=== PATIENT | female | born 1990 | race Caucasian/White ===

== ENCOUNTER 2019-06-13 23:08 | Emergency (ER) | payer OTHER ==
--- NOTE | 2019-06-13 23:16 | ERPHSYRPT ---
- History of Present Illness Time Seen by Provider: 06/13/19 23:11 Source: patient, EMS Exam Limitations: clinical condition Physician History: A 29-year-old female who was brought in by ambulance service because of both verbalization of suicide ideation and attempt with a electric cord around her neck. Patient states that she does not want to live anymore. She stated this to several individuals on several occasions today. She again told me and the nurse the same thing. Patient states she drank 2 alcoholic drinks prior to arrival. She denies any other illicit drug use. Patient is not taking her usual psychiatric medications. Patient states that she is not hallucinating. Patient has bruise huber on her arms and when asked how they got there, she said she was not sure but stated "I probably deserved it". Timing/Duration: today Severity of Symptoms-Max: moderate Severity of Symptoms-Current: moderate Context related to: living circumstances, other (Mental illness) Suicidal thoughts: attempt, specific plan Associated Symptoms: depressed, suicidal ideation, other (Aggressive) Previous symptoms: same symptoms as today Allergies/Adverse Reactions: amoxicillin [Amoxicillin] Allergy (Mild, Verified 06/13/19 23:46) azithromycin Allergy (Mild, Verified 06/13/19 23:46) Hx Tetanus, Diphtheria Vaccination/Date Given: (unknown) Hx Influenza Vaccination/Date Given: Yes Hx Pneumococcal Vaccination/Date Given: No - Past Medical History Pertinent Past Medical History: Yes Neurological History: No Pertinent History ENT History: No Pertinent History Cardiac History: No Pertinent History Respiratory History: No Pertinent History Endocrine Medical History: No Pertinent History Musculoskeletal History: No Pertinent History GI Medical History: No Pertinent History History: No Pertinent History Psycho-Social History: No Pertinent History Female Reproductive Disorders: Other Other Medical History: ANXIETY/DEPRESSION - Past Surgical History Past Surgical History: Yes Neuro Surgical History: No Pertinent History Cardiac: No Pertinent History Respiratory: No Pertinent History Gastrointestinal: Appendectomy Genitourinary: No Pertinent History Musculoskeletal: No Pertinent History Female Surgical History: Other Other Surgical History: uterine scope. bartholin gland removed. D&C - Social History Smoking Status: Current some day smoker Exposure to second hand smoke: Yes Drug Use: marijuana Patient Lives Alone: No - Review of Systems Constitutional: No Symptoms Eyes: No Symptoms Ears, Nose, & Throat: No Symptoms Respiratory: No Symptoms Cardiac: No Symptoms Abdominal/Gastrointestinal: No Symptoms Genitourinary Symptoms: No Symptoms Musculoskeletal: No Symptoms Skin: Other (Doing of upper and outer arms.) Psychological: Anxiety, Depression, Suicidal Ideations Endocrine: No Symptoms Hematologic/Lymphatic: No Symptoms Immunological/Allergic: No Symptoms All Other Systems: Reviewed and Negative - Nursing Vital Signs Nursing Vital Signs: Initial Vital Signs Temperature 98.4 F 06/13/19 23:17 Pulse Rate 70 06/13/19 23:17 Respiratory Rate 13 06/13/19 23:17 Blood Pressure 90/55 06/13/19 23:17 O2 Sat by Pulse Oximetry 98 06/13/19 23:17 - Physical Exam General Appearance: alert, anxiety, thin Eyes, Ears, Nose, Throat Exam: normal ENT inspection, moist mucous membranes Neck Exam: normal inspection, non-tender, supple, full range of motion Respiratory Exam: normal breath sounds, lungs clear, airway intact, No chest tenderness, No respiratory distress Cardiovascular Exam: regular rate/rhythm, normal heart sounds, normal peripheral pulses Gastrointestinal/Abdominal Exam: soft, normal bowel sounds, No tenderness Extremities Exam: normal range of motion, other (Oozing in her upper outer arms) , No evidence of injury Current Suicidality: has suicide plan Neurological Exam: alert, calm, 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, oriented x 3, depressed affect Appearance: appropriate appearance, impaired insight (Passive-aggressive in both her demeanor stance and verbal responses) Behavior/Eye Contact/Speech: avoids eye contact, alert & uncooperative, intoxicated appearance Thoughts/Hallucinations: no apparent hallucination Skin Exam: ecchymosis (Outer arms upper portions bilaterally) SpO2 Interpretation: normal O2 Delivery: Room Air - Course Nursing assessment & vital signs reviewed: Yes EKG Interpreted by Me: RATE (74), Sinus Rhythm, NORMAL AXIS, NORMAL INTERVALS, NORMAL QRS Ordered Tests: Active Orders 24 hr Category Date Time Status Chemical Research Technician STAT Care 06/13/19 23:20 Active EKG-ER Only STAT Care 06/13/19 23:18 Active Psychiatric Consult STAT Cons 06/13/19 23:19 Active ACETAMINOPHEN Stat Lab 06/13/19 23:37 Completed Alcohol [ETHYL ALCOHOL] Stat Lab 06/14/19 03:09 Completed CBC W DIFF Stat Lab 06/13/19 23:37 Completed CMP Stat Lab 06/13/19 23:37 Completed ETHYL ALCOHOL Stat Lab 06/13/19 23:37 Completed SALICYLATE Stat Lab 06/13/19 23:37 Completed UA W/RFX UR CULTURE Stat Lab 06/13/19 23:51 Completed Urine Triage Profile Stat Lab 06/13/19 23:51 Completed Lab/Rad Data: Laboratory Result Diagrams 06/13/19 23:37 06/13/19 23:37 Laboratory Results 06/14/19 06/13/19 06/13/19 Range/Units 03: 23:51 23:51 WBC (4.0-10.5) K/mm3 RBC (4.1-5.4) M/mm3 Hgb (12.0-16.0) gm/dl Hct (35-47) % MCV (78-100) fl MCH (26-32) pg MCHC (32-36) g/dl RDW (11.5-14.0) % Plt Count (150-450) K/mm3 MPV (7.5-11.0) fl Gran % (36.0-66.0) % Eos # (Auto) (0-0.5) Absolute Lymphs (auto) (1.0-4.6) Absolute Monos (auto) (0.0-1.3) Lymphocytes % (24.0-44.0) % Monocytes % (0.0-12.0) % Eosinophils % (0.00-5.0) % Basophils % (0.0-0.4) % Absolute Granulocytes (1.4-6.9) Basophils # (0-0.4) Sodium (137-145) mmol/L Potassium (3.5-5.1) mmol/L Chloride (98-107) mmol/L Carbon Dioxide (22-30) mmol/L Anion Gap (5-15) MEQ/L BUN (7-17) mg/dL Creatinine (0.52-1.04) mg/dL Estimated GFR ML/MIN Glucose (74-106) mg/dL Calcium (8.4-10.2) mg/dL Total Bilirubin (0.2-1.3) mg/dL AST (14-36) U/L ALT (0-35) U/L Alkaline Phosphatase (38-126) U/L Serum Total Protein (6.3-8.2) g/dL Albumin (3.5-5.0) g/dL Urine Color STRAW (YELLOW) Urine Appearance CLEAR (CLEAR) Urine pH 6.0 (5-6) Ur Specific [place] 1.003 (1.005-1.025) Urine Protein NEGATIVE (Negative) Urine Ketones NEGATIVE (NEGATIVE) Urine Blood NEGATIVE (0-5) Scott/ul Urine Nitrite NEGATIVE (NEGATIVE) Urine Bilirubin NEGATIVE (NEGATIVE) Urine Urobilinogen NEGATIVE (0-1) mg/dL Ur Leukocyte Esterase NEGATIVE (NEGATIVE) Urine WBC (Auto) 0-2 (0-5) /HPF Urine RBC (Auto) NONE SEEN (0-2) /HPF U Epithel Cells (Auto) RARE (FEW) /HPF Urine Bacteria (Auto) RARE (NEGATIVE) /HPF Urine Mucus (Auto) SLIGHT (NEGATIVE) /HPF Urine Culture Reflexed NO (NO) Urine Glucose NEGATIVE (NEGATIVE) mg/dL Salicylates (2-20) mg/dL Urine Opiates Level NEGATIVE (NEGATIVE) Ur Methadone NEGATIVE (NEGATIVE) Acetaminophen (10-30) ug/ml Urine Barbiturates NEGATIVE (NEGATIVE) Ur Phencyclidine (PCP) NEGATIVE (NEGATIVE) Urine Amphetamine NEGATIVE (NEGATIVE) U Benzodiazepine Level NEGATIVE (NEGATIVE) Urine Cocaine NEGATIVE (NEGATIVE) Urine Marijuana (THC) POSITIVE (NEGATIVE) Ethyl Alcohol < 10 (0-10) mg/dL 06/13/19 06/13/19 Range/Units 23:37 23:37 WBC 7.5 (4.0-10.5) K/mm3 RBC 4.79 (4.1-5.4) M/mm3 Hgb 15.5 (12.0-16.0) gm/dl Hct 43.7 (35-47) % MCV 91.2 (78-100) fl MCH 32.4 H (26-32) pg MCHC 35.5 (32-36) g/dl RDW 12.6 (11.5-14.0) % Plt Count 281 (150-450) K/mm3 MPV 10.2 (7.5-11.0) fl Gran % 71.8 H (36.0-66.0) % Eos # (Auto) 0.08 (0-0.5) Absolute Lymphs (auto) 1.37 (1.0-4.6) Absolute Monos (auto) 0.63 (0.0-1.3) Lymphocytes % 18.2 L (24.0-44.0) % Monocytes % 8.4 (0.0-12.0) % Eosinophils % 1.1 (0.00-5.0) % Basophils % 0.5 (0.0-0.4) % Absolute Granulocytes 5.42 (1.4-6.9) Basophils # 0.04 (0-0.4) Sodium 140 (137-145) mmol/L Potassium 3.9 (3.5-5.1) mmol/L Chloride 108 H (98-107) mmol/L Carbon Dioxide 23 (22-30) mmol/L Anion Gap 13.6 (5-15) MEQ/L BUN 8 (7-17) mg/dL Creatinine 0.69 (0.52-1.04) mg/dL Estimated GFR > 60.0 ML/MIN Glucose 84 (74-106) mg/dL Calcium 9.1 (8.4-10.2) mg/dL Total Bilirubin 0.80 (0.2-1.3) mg/dL AST 22 (14-36) U/L ALT 12 (0-35) U/L Alkaline Phosphatase 56 (38-126) U/L Serum Total Protein 8.4 H (6.3-8.2) g/dL Albumin 4.8 (3.5-5.0) g/dL Urine Color (YELLOW) Urine Appearance (CLEAR) Urine pH (5-6) Ur Specific [place] (1.005-1.025) Urine Protein (Negative) Urine Ketones (NEGATIVE) Urine Blood (0-5) Scott/ul Urine Nitrite (NEGATIVE) Urine Bilirubin (NEGATIVE) Urine Urobilinogen (0-1) mg/dL Ur Leukocyte Esterase (NEGATIVE) Urine WBC (Auto) (0-5) /HPF Urine RBC (Auto) (0-2) /HPF U Epithel Cells (Auto) (FEW) /HPF Urine Bacteria (Auto) (NEGATIVE) /HPF Urine Mucus (Auto) (NEGATIVE) /HPF Urine Culture Reflexed (NO) Urine Glucose (NEGATIVE) mg/dL Salicylates < 1.0 L (2-20) mg/dL Urine Opiates Level (NEGATIVE) Ur Methadone (NEGATIVE) Acetaminophen < 10 L (10-30) ug/ml Urine Barbiturates (NEGATIVE) Ur Phencyclidine (PCP) (NEGATIVE) Urine Amphetamine (NEGATIVE) U Benzodiazepine Level (NEGATIVE) Urine Cocaine (NEGATIVE) Urine Marijuana (THC) (NEGATIVE) Ethyl Alcohol 45 H (0-10) mg/dL - Progress Progress: unchanged Progress Note: 06/14/19 03:50 Patient is being transferred to [facility] via BLS. Dr. Elliott accepted the patient for transfer and admission. Counseled pt/family regarding: lab results, diagnosis, need for follow-up - Departure Departure Disposition: Transfer Clinical Impression: Suicidal ideation, Suicide gesture Condition: Stable Critical Care Time: No Referrals: SYBIL PEÑA MD [Primary Care Provider] -
[2019-06-13 23:53] LABS: Absolute Neutrophil Ct (ANC) 5.42 (1.4-6.9); BASOPHIL % 0.5 % (0.0-0.4); Basophil (Absolute #) 0.04 (0-0.4); Eosinophil % 1.1 % (0.00-5.0); Eosinophil (Absolute #) 0.08 (0-0.5); Hematocrit 43.7 % (35-47); Hemoglobin 15.5 gm/dl (12.0-16.0); Lymphocyte (Absolute #) 1.37 (1.0-4.6); Lymphocytes % 18.2 % (24.0-44.0); Mean Cell Volume 91.2 fl (78-100); Mean Corpuscular Hemoglobin 32.4 pg (26-32); Mean Corpuscular Hgb Concent. 35.5 g/dl (32-36); Mean Platelet Volume 10.2 fl (7.5-11.0); Monocyte (Absolute #) 0.63 (0.0-1.3); Monocytes % 8.4 % (0.0-12.0); Neutrophil % 71.8 % (36.0-66.0); Platelet Count 281 K/mm3 (150-450); Red Blood Count 4.79 M/mm3 (4.1-5.4); Red Cell Distribution Width 12.6 % (11.5-14.0); White Blood Count 7.5 K/mm3 (4.0-10.5)
[2019-06-13 23:58] LABS: ACETAMINOPHEN < 10 ug/ml (10-30); ALBUMIN 4.8 g/dL (3.5-5.0); ALKALINE PHOSPHATASE 56 U/L (38-126); ANION GAP 13.6 MEQ/L (5-15); BLOOD UREA NITROGEN 8 mg/dL (7-17); CHLORIDE 108 mmol/L (98-107); Calcium 9.1 mg/dL (8.4-10.2); Carbon Dioxide 23 mmol/L (22-30); Creatinine 1 0.69 mg/dL (0.52-1.04); ETHYL ALCOHOL 45 mg/dL (0-10); Glucose 84 mg/dL (74-106); Potassium 3.9 mmol/L (3.5-5.1); SALICYLATE < 1.0 mg/dL (2-20); SGOT/AST 22 U/L (14-36); SGPT/ALT 12 U/L (0-35); SODIUM 140 mmol/L (137-145); Total Protein 8.4 g/dL (6.3-8.2)
[2019-06-13 23:58] LABS: Appearance CLEAR (CLEAR); Bacteria RARE /HPF (NEGATIVE); Bilirubin NEGATIVE (NEGATIVE); Blood NEGATIVE Ery/ul (0-5); Epithelial Cells RARE /HPF (FEW); Glucose NEGATIVE (NEGATIVE); Ketones NEGATIVE (NEGATIVE); Leukocyte Esterase NEGATIVE (NEGATIVE); Mucus SLIGHT /HPF (NEGATIVE); Nitrite NEGATIVE (NEGATIVE); Protein,Urine Dip NEGATIVE (Negative); Specific Gravity 1.003 (1.005-1.025); Urobilinogen NEGATIVE mg/dL (0-1); WBC 0-2 /HPF (0-5)
[2019-06-13 23:59] LABS: RBC NONE SEEN /HPF (0-2)
[2019-06-14 00:09] LABS: Amphetamine,Urine NEGATIVE (NEGATIVE); Barbiturate,Urine NEGATIVE (NEGATIVE); Benzodiazepine,Urine NEGATIVE (NEGATIVE); Cocaine,Urine NEGATIVE (NEGATIVE); Methadone,Urine NEGATIVE (NEGATIVE); Opiate,Urine NEGATIVE (NEGATIVE); PCP,Urine NEGATIVE (NEGATIVE); THC,Urine POSITIVE (NEGATIVE)
[2019-06-14 04:00] VITALS: BP 102/65; PULSE 81; O2SAT 97
[2019-06-14] MEDS ORDERED: MOTRIN 400 MG PO ONE (04:00)
[2019-06-14] MEDS ORDERED: MOTRIN 400 MG ONE (04:01)
== END 2019-06-14 04:29 ==
LOC: ED 23:08
DX: R45.851 Suicidal ideations (principal); F41.9 Anxiety disorder, unspecified; F32.9 Major depressive disorder, single episode, unspecified
CPT/HCPCS: 36415; 80053; 80307; 81001; 85025; 93005; 93041; 99285; G0480; G0481; A9270-GY

== ENCOUNTER 2023-06-14 17:38 | Emergency (ER) | payer BC, OTHER ==
[2023-06-14 17:51] VITALS: TEMP 98.3
[2023-06-14 18:22] LABS: Absolute Neutrophil Ct (ANC) 3.32 x10^3/uL (1.4-6.9); BASOPHIL % 0.6 % (0.0-0.4); Basophil (Absolute #) 0.04 x10^3/uL (0-0.4); Eosinophil % 1.9 % (0.00-5.0); Eosinophil (Absolute #) 0.12 x10^3/uL (0-0.5); Hematocrit 45.1 % (35-47); Hemoglobin 15.3 g/dL (12.0-16.0); IMMATURE GRAN # 0.01 x10^3u/L (0.00-0.03); IMMATURE GRAN % 0.2 % (0.00-0.4); Lymphocyte (Absolute #) 2.21 x10^3/uL (1.0-4.6); Lymphocytes % 35.6 % (24.0-44.0); Mean Cell Volume 94.5 fL (78-100); Mean Corpuscular Hemoglobin 32.1 pg (26-32); Mean Corpuscular Hgb Concent. 33.9 g/dL (32-36); Mean Platelet Volume 9.7 fL (7.5-11.0); Monocyte (Absolute #) 0.51 x10^3/uL (0.0-1.3); Monocytes % 8.2 % (0.0-12.0); Neutrophil % 53.5 % (36.0-66.0); Platelet Count 309 x10^3/uL (150-450); Red Blood Count 4.77 x10^6/uL (4.1-5.4); Red Cell Distribution Width 12.7 % (11.5-14.0); White Blood Count 6.2 x10^3/uL (4.0-10.5)
--- NOTE | 2023-06-14 18:30 | ERPHSYRPT ---
- History of Present Illness Source: patient, family Exam Limitations: no limitations Patient Subjective Stated Complaint: Pt states "I woke up around 4 pm and my chest started to hurt really bad. The pain goes up into my left arm and neck." Triage Nursing Assessment: Pt presented alert and oriented X 3, skin pwd. Pt ambulates with an upright steady gait, able to speak in clear full sentences. PT holding her chest, crying. Timing/Duration: week(s) Severity: moderate Associated Symptoms: denies symptoms Hx Tetanus, Diphtheria Vaccination/Date Given: No Hx Influenza Vaccination/Date Given: No Hx Pneumococcal Vaccination/Date Given: No Immunizations Up to Date: No <MACARIO ZIMMERMAN - Last Filed: 06/14/23 18:55> <DANNY HANSON - Last Filed: 06/14/23 21:50> - History of Present Illness Time Seen by Provider: 06/14/23 18:28 Physician History: Pt states "I woke up around 4 pm and my chest started to hurt really bad. The pain goes up into my left arm and neck." Patient is 33-year-old female without any significant past medical history started having off-and-on left-sided chest pain radiating to the left arm for last 2 to 3 weeks but it got worse today so she got concerned and came to the emergency room. She still having some precordial left-sided chest pain radiating to the left. She is denying any nausea vomiting abdominal pain headache dizziness blood in the stool or urine. She has a 1 episode of blood in the stool 2 weeks ago but afterwards she did not have any other episode. She denies any epigastric pain. (ELSIE,MACARIO) Allergies/Adverse Reactions: amoxicillin [Amoxicillin] Allergy (Mild, Verified 06/13/19 23:46) azithromycin Allergy (Mild, Verified 06/13/19 23:46) Home Medications: No Reportable Medications [No Reported Medications] 06/14/23 [History] Travel Risk - International Travel Have you traveled outside of the country in past 3 weeks: No - Coronavirus Screening Are you exhibiting any of the following symptoms?: No Close contact with a COVID-19 positive Pt in past 14-21 Days: No - Vaccine Status Have you recieved a Covid-19 vaccination: No <ELSIE,MACARIO - Last Filed: 06/14/23 18:55> - Review of Systems Constitutional: No Fever, No Chills Eyes: No Symptoms Ears, Nose, & Throat: No Symptoms Respiratory: No Cough, No Dyspnea Cardiac: Chest Pain, No Edema, No Syncope Abdominal/Gastrointestinal: No Abdominal Pain, No Nausea, No Vomiting, No Diarrhea Genitourinary Symptoms: No Dysuria Musculoskeletal: No Back Pain, No Neck Pain Skin: No Rash Neurological: No Dizziness, No Focal Weakness, No Sensory Changes Psychological: No Symptoms Endocrine: No Symptoms All Other Systems: Reviewed and Negative <ELSIE - Last Filed: 06/14/23 18:55> - Past Medical History Pertinent Past Medical History: Yes Neurological History: No Pertinent History ENT History: No Pertinent History Cardiac History: No Pertinent History Respiratory History: No Pertinent History Endocrine Medical History: No Pertinent History Musculoskeletal History: No Pertinent History GI Medical History: No Pertinent History History: No Pertinent History Psycho-Social History: No Pertinent History Female Reproductive Disorders: Other Other Medical History: ANXIETY/DEPRESSION - Past Surgical History Past Surgical History: Yes Neuro Surgical History: No Pertinent History Cardiac: No Pertinent History Respiratory: No Pertinent History Gastrointestinal: Appendectomy Genitourinary: No Pertinent History Musculoskeletal: No Pertinent History Female Surgical History: Other Other Surgical History: uterine scope. bartholin gland removed. D&C - Social History Smoking Status: Former smoker Exposure to second hand smoke: Yes Drug Use: marijuana Patient Lives Alone: No - Female History Hx Last Menstrual Period: 05/27/2023 Hx Now: No <ELSIE - Last Filed: 06/14/23 18:55> - Physical Exam General Appearance: no apparent distress, alert Eye Exam: PERRL/EOMI, eyes nml inspection Ears, Nose, Throat Exam: normal ENT inspection, TMs normal, pharynx normal, moist mucous membranes Neck Exam: normal inspection, non-tender, supple, full range of motion Respiratory Exam: normal breath sounds, lungs clear, No respiratory distress Cardiovascular Exam: regular rate/rhythm, normal heart sounds, normal peripheral pulses Gastrointestinal/Abdomen Exam: soft, normal bowel sounds, No tenderness, No mass Back Exam: normal inspection, normal range of motion, No CVA tenderness, No vertebral tenderness Extremity Exam: normal inspection, normal range of motion, pelvis stable Neurologic Exam: alert, oriented x 3, cooperative, normal mood/affect, nml cerebellar function, nml station & gait, sensation nml, No motor deficits Skin Exam: normal color, warm, dry, No rash Lymphatic Exam: No adenopathy SpO2: 100 <MACARIO ZIMMERMAN - Last Filed: 06/14/23 18:55> - Nursing Vital Signs Nursing Vital Signs: Initial Vital Signs Pulse Rate 75 06/14/23 17:45 Respiratory Rate 16 06/14/23 17:45 Blood Pressure 145/97 06/14/23 17:45 O2 Sat by Pulse Oximetry 99 06/14/23 17:45 Pain Scale Pain Intensity 0 - Course Nursing assessment & vital signs reviewed: Yes EKG Interpreted by Me: Sinus Rhythm - Radiology Exams Chest X-ray Interpretation: Reviewed by me <MACARIO ZIMMERMAN - Last Filed: 06/14/23 18:55> - Course EKG Interpreted by Me: RATE (84), Sinus Rhythm, NORMAL AXIS, Other (QTc = 442) - Radiology Exams Chest X-ray Interpretation: No Pneumonia <DANNY HANSON - Last Filed: 06/14/23 21:50> Ordered Tests: Active Orders 24 hr Category Date Time Status EKG-ER Only STAT Care 06/14/23 18:13 Active EKG-ER Only STAT Care 06/14/23 18:30 Active CHEST 2 VIEWS (PA AND LAT) Stat Exams 06/14/23 18:14 Completed AMYLASE Stat Lab 06/14/23 18:00 Completed CBC W DIFF Stat Lab 06/14/23 18:00 Completed CMP Stat Lab 06/14/23 18:00 Completed LIPASE Stat Lab 06/14/23 18:00 Completed TROPONIN Stat Lab 06/14/23 18:00 Completed UA W/RFX UR CULTURE Stat Lab 06/14/23 20:07 Completed Medication Summary Discontinued Medications Generic Name Dose Route Start Last Admin Trade Name Kaylin PRN Reason Stop Dose Admin Acetaminophen 975 mg 06/14/23 18:13 06/14/23 18:40 Acetaminophen 325 Mg Tablet PO 06/14/23 18:14 975 mg STAT ONE Administration Acetaminophen Confirm 06/14/23 18:39 Acetaminophen 325 Mg Tablet Administered 06/14/23 18:40 Dose 975 mg .ROUTE .STK-MED ONE Famotidine 20 mg 06/14/23 18:13 06/14/23 18:41 Famotidine 20 Mg/1 Vial IV 06/14/23 18:14 20 mg STAT ONE Administration Famotidine Confirm 06/14/23 18:39 Famotidine 20 Mg/1 Vial Administered 06/14/23 18:40 Dose 20 mg IV .STK-MED ONE Sodium Chloride 1,000 mls @ 999 mls/hr 06/14/23 18:13 06/14/23 19:49 Sodium Chloride 0.9% 1000 Ml IV 06/14/23 19:13 Infused .Q1H1M STA Infusion Sodium Chloride Confirm 06/14/23 18:39 Sodium Chloride 0.9% 1000 Ml Administered 06/14/23 18:40 Dose 1,000 mls @ ud .ROUTE .STK-MED ONE Sodium Chloride Confirm 06/14/23 18:43 Sodium Chloride 0.9% 1000 Ml Administered 06/14/23 18:44 Dose 1,000 mls @ ud .ROUTE .STK-MED ONE Ketorolac Tromethamine 30 mg 06/14/23 18:13 06/14/23 18:40 Ketorolac Tromethamine 30 Mg/Ml Inj IV 06/14/23 18:14 30 mg STAT ONE Administration Ketorolac Tromethamine Confirm 06/14/23 18:39 Ketorolac Tromethamine 30 Mg/Ml Inj Administered 06/14/23 18:40 Dose 30 mg .ROUTE .STK-MED ONE Lab/Rad Data: Laboratory Result Diagrams 06/14/23 18:00 06/14/23 18:00 Laboratory Results 06/14/23 06/14/23 06/14/23 Range/Units 20:07 18:00 18:00 WBC 6.2 (4.0-10.5) x10^3/uL RBC 4.77 (4.1-5.4) x10^6/uL Hgb 15.3 (12.0-16.0) g/dL Hct 45.1 (35-47) % MCV 94.5 (78-100) fL MCH 32.1 H (26-32) pg MCHC 33.9 (32-36) g/dL RDW 12.7 (11.5-14.0) % Plt Count 309 (150-450) x10^3/uL MPV 9.7 (7.5-11.0) fL Gran % 53.5 (36.0-66.0) % Immature Gran % (Auto) 0.2 (0.00-0.4) % Nucleat RBC Rel Count 0.0 (0.00-0.1) % Eos # (Auto) 0.12 (0-0.5) x10^3/uL Immature Gran # (Auto) 0.01 (0.00-0.03) x10^3u/L Absolute Lymphs (auto) 2.21 (1.0-4.6) x10^3/uL Absolute Monos (auto) 0.51 (0.0-1.3) x10^3/uL Absolute Nucleated RBC 0.00 (0.00-0.01) x10^3u/L Lymphocytes % 35.6 (24.0-44.0) % Monocytes % 8.2 (0.0-12.0) % Eosinophils % 1.9 (0.00-5.0) % Basophils % 0.6 (0.0-0.4) % Absolute Granulocytes 3.32 (1.4-6.9) x10^3/uL Basophils # 0.04 (0-0.4) x10^3/uL Sodium 138 (135-145) mmol/L Potassium 4.0 (3.5-5.1) mmol/L Chloride 106 (98-107) mmol/L Carbon Dioxide 23 (22-30) mmol/L Anion Gap 13.3 (5-15) MEQ/L BUN 14 (7-17) mg/dL Creatinine 0.76 (0.52-1.04) mg/dL Estimated GFR 104.7 ML/MIN Glucose 92 (74-106) mg/dL Calcium 9.3 (8.4-10.2) mg/dL Total Bilirubin 0.60 (0.2-1.3) mg/dL AST 18 (14-36) U/L ALT 14 (0-35) U/L Alkaline Phosphatase 61 (38-126) U/L Troponin I < 0.012 (0.000-0.034) ng/mL Serum Total Protein 7.4 (6.3-8.2) g/dL Albumin 4.3 (3.5-5.0) g/dL Amylase 68 (30-110) U/L Lipase 53 (23-300) U/L Urine Color Yellow (Yellow) Urine Appearance Clear (Clear) Urine pH 7.5 (4.6-8.0) Ur Specific [place] <=1.005 (1.005-1.030) Urine Protein Negative (Negative) Urine Glucose (UA) Negative (Negative) mg/dL Urine Ketones Negative (Negative) Urine Blood Negative (Negative) Urine Nitrite Negative (Negative) Urine Bilirubin Negative (Negative) Urine Urobilinogen 0.2 (0.2) mg/dL Ur Leukocyte Esterase Negative (Negative) U Hyaline Cast (Auto) NONE SEEN (0-2) /LPF Urine Microscopic RBC 0-2 (0-5) /HPF Urine Microscopic WBC 0-2 (0-5) /HPF Ur Epithelial Cells None Seen (None Seen) /HPF Urine Bacteria None Seen (None Seen) /HPF Urine Culture Reflexed NO (NO) - Progress Progress: unchanged Counseled pt/family regarding: lab results, diagnosis, need for follow-up, rad results <DANNY HANSON - Last Filed: 06/14/23 21:50> - Progress Progress Note: 06/14/23 21:[address] Hanson @2140: perrl, pharynx pink, lungs clear, no cardiac rub, abdominal B.S. normal, alert & cooperative. (DANNY HANSON) Medical Desision Making - Diagnostic Testing Diagnostic test were ordered, analyzed, and reviewed by me: Yes Radiological Interpretation: Interpreted by me <DANNY HANSON - Last Filed: 06/14/23 21:50> <MACARIO ZIMMERMAN - Last Filed: 06/14/23 18:55> - Departure Departure Disposition: Home Critical Care Time: No <DANNY HANSON - Last Filed: 06/14/23 21:50> - Departure Clinical Impression: Chest pain Condition: Stable Referrals: SYBIL PEÑA MD [Primary Care Provider] - Follow up/PCP as directed Instructions: Chest Pain (DC) Additional Instructions: Follow up with private doctor tomorrow.
[2023-06-14] MEDS ORDERED: TYLENOL 325 MG ONE (18:39)
[2023-06-14] MEDS ORDERED: Sodium Chloride 0.9% 1000 ML 0 ML ONE (18:39)
[2023-06-14] MEDS ORDERED: TORAdol 30 mg Injection ONE (18:39)
[2023-06-14] MEDS ORDERED: Pepcid 20 MG VIAL IV ONE (18:39)
[2023-06-14 18:40] LABS: ALBUMIN 4.3 g/dL (3.5-5.0); ALKALINE PHOSPHATASE 61 U/L (38-126); AMYLASE 68 U/L (30-110); ANION GAP 13.3 MEQ/L (5-15); BLOOD UREA NITROGEN 14 mg/dL (7-17); CHLORIDE 106 mmol/L (98-107); Calcium 9.3 mg/dL (8.4-10.2); Carbon Dioxide 23 mmol/L (22-30); Creatinine 1 0.76 mg/dL (0.52-1.04); EST GLOMERULAR FILTRATION RATE 104.7 ML/MIN; Glucose 92 mg/dL (74-106); LIPASE 53 U/L (23-300); SGOT/AST 18 U/L (14-36); SGPT/ALT 14 U/L (0-35); SODIUM 138 mmol/L (135-145); TROPONIN < 0.012 ng/mL (0.000-0.034); Total Protein 7.4 g/dL (6.3-8.2)
[2023-06-14] MEDS: TYLENOL 325 MG PO ONE (18:40)
[2023-06-14] MEDS: TORAdol 30 mg Injection IV ONE (18:40)
[2023-06-14] MEDS: Sodium Chloride 0.9% 1000 ML 1,000 ML IV STA (18:41)
[2023-06-14] MEDS: Pepcid 20 MG VIAL IV ONE (18:41)
[2023-06-14] MEDS ORDERED: Sodium Chloride 0.9% 1000 ML 1,000 ML ONE (18:43)
--- NOTE | 2023-06-14 20:11 | XRAY ---
Indication: Chest pain 1-2 months. Comparison: September 13, 2022 PA/lateral chest unchanged again demonstrating normal heart and lungs with incidental right lung calcified granuloma. Bony thorax intact again with minimal dextroscoliosis. No new/acute abnormalities.
[2023-06-14 20:13] VITALS: O2SAT 99
[2023-06-14 20:46] LABS: Appearance Clear (Clear); Bacteria None Seen /HPF (None Seen); Bilirubin Negative (Negative); Blood Negative (Negative); Epithelial Cells None Seen /HPF (None Seen); Glucose, Urine Negative (Negative); Hyaline Casts NONE SEEN /LPF (0-2); Ketones Negative (Negative); Leukocyte Esterase Negative (Negative); Nitrite Negative (Negative); Ph 7.5 (4.6-8.0); Protein,Urine Dip Negative (Negative); RBC 0-2 /HPF (0-5); Specific Gravity <=1.005 (1.005-1.030); Urobilinogen 0.2 mg/dL (0.2); WBC 0-2 /HPF (0-5)
[2023-06-14 21:00] LABS: ADD URINE CULTURE? NO (NO)
[2023-06-14 21:39] VITALS: BP 110/67; PULSE 83; RESP 17
== END 2023-06-14 22:00 | disposition home or self-care (01) ==
LOC: ED 17:38
DX: R07.9 Chest pain, unspecified (principal); Z20.828 Contact with and (suspected) exposure to other viral communicable diseases
CPT/HCPCS: 36415; 71046; 80053; 81001; 82150; 83690; 84484; 85025; 93005; 96360; 96374; 96375; 99284; J1885; A9270-GY